=== PATIENT | female | born 1935 | race Caucasian/White ===

== ENCOUNTER 2017-06-06 12:48 | Inpatient (IN) | payer MEDICARE, BC ==
[~2017-06-06] VITALS: Ht 162.6 cm; Wt 62.4 kg
[2017-06-06] MEDS ORDERED: SODIUM CHLORIDE FLUSH 10ML SYR IVF ONE (14:30)
[2017-06-06] MEDS ORDERED: ONDANSETRON 2MG/ML, 2ML IVPush ONE (14:30)
[2017-06-06] MEDS ORDERED: DIPH,PERTUSS(ACELL),TET VAC/PF 0.5 ML IM-VACC ONE (14:59)
[2017-06-06] MEDS ORDERED: ONDANSETRON 2MG/ML, 2ML ONE (14:59)
[2017-06-06] MEDS ORDERED: LIDOCAINE 1%, 20ML ONE (14:59)
[2017-06-06] MEDS ORDERED: FENTANYL PF 100 MCG/2ML ONE (14:59)
[2017-06-06] MEDS ORDERED: LIDOCAINE 1%, 20ML INFIL ONE (15:00)
[2017-06-06] MEDS ORDERED: FENTANYL PF 100 MCG/2ML IVPush ONE (15:00)
[2017-06-06] MEDS ORDERED: DIPHTHERIA-TETANUS ADULT 0.5ML IM-VACC ONE (15:00)
[2017-06-06 15:13] LABS: BASOPHILS # (AUTO) 0.03 x10^3/uL (0-0.1); BASOPHILS % (AUTO) 0 % (0-1); EOSINOPHILS # (AUTO) 0.25 x10^3/uL (0-0.4); EOSINOPHILS % (AUTO) 2 % (1-7); LYMPHOCYTES # (AUTO) 1.38 x10^3/uL (1-3.4); LYMPHOCYTES % (AUTO) 12 % (22-44); MD NO; MEAN CORPUSCULAR HEMOGLOBIN 29.5 pg (27.0-34.8); MEAN CORPUSCULAR HGB CONC 33.6 g/dL (32.4-35.8); MEAN CORPUSCULAR VOLUME 87.7 fL (80-100); MEAN PLATELET VOLUME 8.9 fL (7.4-10.4); MONOCYTES # (AUTO) 0.46 x10^3/uL (0.2-0.8); MONOCYTES % (AUTO) 4 % (2-9); NEUTROPHILS # (AUTO) 9.22 x10^3/uL (1.8-6.8); NEUTROPHILS % (AUTO) 81 % (42-75); PLATELET COUNT 286 x10^3/uL (130-400); RED BLOOD COUNT 5.41 x10^6/uL (3.82-5.3); RED CELL DISTRIBUTION WIDTH 13.9 % (9.6-15.2)
[2017-06-06 15:17] LABS: ALBUMIN 4.2 g/dL (3.4-5.0); ANION GAP 8 mmol/L (5-15); CALCIUM 9.5 mg/dL (8.5-10.1); CHLORIDE 111 mmol/L (98-107); CREATININE 0.92 mg/dL (0.55-1.02)
[2017-06-06 15:26] LABS: INTERNATIONAL NORMALIZED RATIO 1.01 (0.93-1.1); PROTHROMBIN TIME 10.4 Seconds (9.6-11.5)
[2017-06-06] MEDS ORDERED: POTASSIUM CHLORIDE 20 MEQ TAB.ER.PRT PO ONE (15:30)
[2017-06-06 15:34] VITALS: BP 136/52
[2017-06-06] MEDS ORDERED: ATEN25TA PO (15:42)
[2017-06-06] MEDS ORDERED: LISI2.5T PO (15:42)
[2017-06-06] MEDS ORDERED: FENO145T32 PO (15:43)
[2017-06-06] MEDS ORDERED: LEVO25TA4 PO (15:43)
[2017-06-06] MEDS ORDERED: OXYB5TAB7 PO (15:43)
[2017-06-06] MEDS ORDERED: OMEG1CAP23 PO (15:44)
[2017-06-06] MEDS ORDERED: ASPI300S PR (15:45)
[2017-06-06 15:56] LABS: MICROSCOPIC AUTO
[2017-06-06 16:12] LABS: CULTURE INDICATED? NO
[2017-06-06] MEDS ORDERED: ONDANSETRON 2MG/ML, 2ML IVPush PRN (16:30)
[2017-06-06] MEDS ORDERED: LABETALOL 5MG/ML, 20ML IVPush PRN (16:30)
[2017-06-06] MEDS ORDERED: POLYETHYLENE GLYCOL 17 GM PACKET PO PRN (16:30)
[2017-06-06] MEDS ORDERED: POTASSIUM CHLORIDE 20 MEQ TAB.ER.PRT ONE (16:33)
[2017-06-06] MEDS: ACETAMINOPHEN 325 MG TABLET PO PRN (19:41)
[2017-06-06] MEDS ORDERED: SODIUM CHLORIDE FLUSH 10ML SYR IVF SCH (21:00)
[2017-06-07 04:46] LABS: ANION GAP 7 mmol/L (5-15); CALCIUM 8.8 mg/dL (8.5-10.1); CHLORIDE 113 mmol/L (98-107)
[2017-06-07 04:49] LABS: BASOPHILS # (AUTO) 0.01 x10^3/uL (0-0.1); BASOPHILS % (AUTO) 0 % (0-1); EOSINOPHILS % (AUTO) 5 % (1-7); LYMPHOCYTES # (AUTO) 1.61 x10^3/uL (1-3.4); LYMPHOCYTES % (AUTO) 19 % (22-44); MD NO; MEAN CORPUSCULAR HEMOGLOBIN 29.8 pg (27.0-34.8); MEAN CORPUSCULAR VOLUME 87.6 fL (80-100); MEAN PLATELET VOLUME 8.9 fL (7.4-10.4); MONOCYTES # (AUTO) 0.63 x10^3/uL (0.2-0.8); MONOCYTES % (AUTO) 7 % (2-9); NEUTROPHILS # (AUTO) 5.99 x10^3/uL (1.8-6.8); NEUTROPHILS % (AUTO) 69 % (42-75); PLATELET COUNT 245 x10^3/uL (130-400); RED BLOOD COUNT 4.46 x10^6/uL (3.82-5.3); RED CELL DISTRIBUTION WIDTH 13.9 % (9.6-15.2)
[2017-06-07 04:50] LABS: ALANINE AMINOTRANSFERASE 19 U/L (12-78); ALKALINE PHOSPHATASE 58 U/L (45-117); BILIRUBIN,TOTAL 0.4 mg/dL (0.2-1.0); CREATININE 0.98 mg/dL (0.55-1.02); TOTAL PROTEIN 5.5 g/dL (6.4-8.2)
[2017-06-07] MEDS ORDERED: LEVOTHYROXINE 25 MCG TABLET PO SCH (06:00)
[2017-06-07] MEDS ORDERED: LISINOPRIL 5 MG TABLET PO SCH (09:00)
[2017-06-07] MEDS ORDERED: SENNA/DOCUSATE TABLET PO SCH (09:00)
[2017-06-07] MEDS ORDERED: OXYBUTYNIN CHLORIDE 5 MG TABLET PO SCH (09:00)
[2017-06-07] MEDS ORDERED: FENOFIBRATE 145 MG TABLET PO SCH (09:00)
[2017-06-07] MEDS ORDERED: ATENOLOL 25 MG TABLET PO SCH (09:00)
[2017-06-07] MEDS ORDERED: OMNIPAQUE 350 MG/ML, 100ML BOTTLE ONE (09:10)
[2017-06-07] MEDS: ACETAMINOPHEN 325 MG TABLET PO PRN (10:14)
[2017-06-07] MEDS ORDERED: GADOBUTROL 7.5 MMOL/7.5 ML PFS ONE (10:25)
== END 2017-06-07 17:33 | disposition home or self-care (01) | DRG 580 ==
LOC: ED 14:56 → EDIP 16:09 → CCU 17:14
PROVIDERS: ADMIT Internal Medicine; ATTEND Internal Medicine
PROC: 0JQ10ZZ Repair Face Subcutaneous Tissue and Fascia, Open Approach (ICD-10-PCS; principal; 2017-06-06)
DX: S01.81XA Laceration without foreign body of other part of head, initial encounter (principal); S52.571A Other intraarticular fracture of lower end of right radius, initial encounter for closed fracture; D32.9 Benign neoplasm of meninges, unspecified; D72.829 Elevated white blood cell count, unspecified; E03.9 Hypothyroidism, unspecified; E78.5 Hyperlipidemia, unspecified; W01.0XXA Fall on same level from slipping, tripping and stumbling without subsequent striking against object, initial encounter; Z96.651 Presence of right artificial knee joint; E87.6 Hypokalemia; G93.9 Disorder of brain, unspecified; I10 Essential (primary) hypertension; R32 Unspecified urinary incontinence; Z82.49 Family history of ischemic heart disease and other diseases of the circulatory system; Z90.710 Acquired absence of both cervix and uterus; Z85.820 Personal history of malignant melanoma of skin; Z82.3 Family history of stroke; Z88.6 Allergy status to analgesic agent; Z88.0 Allergy status to penicillin; Y93.89 Activity, other specified; Y92.89 Other specified places as the place of occurrence of the external cause; Y99.8 Other external cause status; Z23 Encounter for immunization
CPT/HCPCS: 12013; 29125; 36415; 70450; 70553; 71045; 71260; 74177; 80048; 80053; 81001; 82040; 85025; 85610; 85730; 87081; 90714; 93005; 96372; 96374; 96375; A9585; J2405; J3010; Q9967

== ENCOUNTER → 2017-12-28 | Outpatient (CLI) | payer MEDICARE, BC ==
[~2017-12-28] MED LIST: ASPI300S PR; ATEN25TA PO; FENO145T32 PO; LEVO25TA4 PO; LISI2.5T PO; OMEG1CAP23 PO; OXYB5TAB7 PO
== END | disposition home or self-care (01) ==
LOC: CFH 11:18
PROVIDERS: ATTEND Psychiatry & Neurology Neurology
DX: G40.909 Epilepsy, unspecified, not intractable, without status epilepticus (principal)
CPT/HCPCS: 36415; 80177

== ENCOUNTER → 2018-01-31 | Outpatient (CLI) | payer MEDICARE, BC | END | disposition home or self-care (01) | LOC: CFH 11:28 | PROVIDERS: ATTEND Psychiatry & Neurology Neurology | DX: G40.409 Other generalized epilepsy and epileptic syndromes, not intractable, without status epilepticus (principal) | CPT/HCPCS: 36415; 80177 ==

== ENCOUNTER → 2018-02-02 | Outpatient (CLI) | payer MEDICARE, BC ==
[~2018-02-02] MED LIST changes: +GADOBUTROL 7.5 MMOL/7.5 ML PFS ONE
== END | disposition home or self-care (01) ==
LOC: CFH 12:27
PROVIDERS: ATTEND Neurological Surgery
DX: D32.0 Benign neoplasm of cerebral meninges (principal); G93.6 Cerebral edema; C43.9 Malignant melanoma of skin, unspecified
CPT/HCPCS: 70553; 82565; A9585

== ENCOUNTER → 2018-06-13 | Outpatient (CLI) | payer MEDICARE, BC ==
[~2018-06-13] MED LIST changes: -GADOBUTROL 7.5 MMOL/7.5 ML PFS ONE
== END | disposition home or self-care (01) ==
LOC: CFH 11:04
PROVIDERS: ATTEND Psychiatry & Neurology Neurology
DX: G40.409 Other generalized epilepsy and epileptic syndromes, not intractable, without status epilepticus (principal)
CPT/HCPCS: 36415; 80177

== ENCOUNTER → 2019-05-30 | Outpatient (CLI) | payer MEDICARE, BC ==
[~2019-05-30] MED LIST changes: +OXYB5TAB10 PO; -OXYB5TAB7 PO
[2019-05-30 13:10] LABS: BASOPHILS # (AUTO) 0.02 x10^3/uL (0-0.1); BASOPHILS % (AUTO) 0 % (0-1); EOSINOPHILS # (AUTO) 0.05 x10^3/uL (0-0.4); EOSINOPHILS % (AUTO) 1 % (1-7); LYMPHOCYTES % (AUTO) 19 % (22-44); MD NO; MEAN CORPUSCULAR HEMOGLOBIN 30.6 pg (27.0-34.8); MEAN CORPUSCULAR HGB CONC 33.4 g/dL (32.4-35.8); MEAN CORPUSCULAR VOLUME 91.7 fL (80-100); MEAN PLATELET VOLUME 8.8 fL (7.4-10.4); MONOCYTES # (AUTO) 0.41 x10^3/uL (0.2-0.8); MONOCYTES % (AUTO) 6 % (2-9); NEUTROPHILS # (AUTO) 5.33 x10^3/uL (1.8-6.8); NEUTROPHILS % (AUTO) 74 % (42-75); PLATELET COUNT 328 x10^3/uL (130-400); RED BLOOD COUNT 4.99 x10^6/uL (3.82-5.3); RED CELL DISTRIBUTION WIDTH 13.2 % (9.6-15.2)
[2019-05-30 13:47] LABS: ALANINE AMINOTRANSFERASE 25 U/L (12-78); ALBUMIN 3.9 g/dL (3.4-5.0); ANION GAP 8 mmol/L (5-15); CALCIUM 9.4 mg/dL (8.5-10.1); CHLORIDE 111 mmol/L (98-107); CREATININE 1.11 mg/dL (0.55-1.02); T4 (THYROXINE) 14.7 mcg/dL (4.8-13.9)
[2019-05-30 14:13] LABS: ALKALINE PHOSPHATASE 59 U/L (45-117); BILIRUBIN,TOTAL 0.5 mg/dL (0.2-1.0); TOTAL PROTEIN 6.6 g/dL (6.4-8.2)
== END | disposition home or self-care (01) ==
LOC: CFH 10:00
PROVIDERS: ATTEND Specialist
DX: G40.901 Epilepsy, unspecified, not intractable, with status epilepticus (principal); R41.3 Other amnesia; Z79.899 Other long term (current) drug therapy
CPT/HCPCS: 36415; 80053; 82607; 84436; 85025

== ENCOUNTER → 2019-07-17 | Outpatient (CLI) | payer MEDICARE, BC ==
[2019-07-17 13:30] LABS: BASOPHILS # (AUTO) 0.02 x10^3/uL (0-0.1); BASOPHILS % (AUTO) 0 % (0-1); EOSINOPHILS # (AUTO) 0.12 x10^3/uL (0-0.4); EOSINOPHILS % (AUTO) 2 % (1-7); LYMPHOCYTES # (AUTO) 1.32 x10^3/uL (1-3.4); LYMPHOCYTES % (AUTO) 22 % (22-44); MD NO; MEAN CORPUSCULAR HGB CONC 34.2 g/dL (32.4-35.8); MEAN CORPUSCULAR VOLUME 90.7 fL (80-100); MEAN PLATELET VOLUME 8.6 fL (7.4-10.4); MONOCYTES # (AUTO) 0.38 x10^3/uL (0.2-0.8); MONOCYTES % (AUTO) 6 % (2-9); NEUTROPHILS # (AUTO) 4.05 x10^3/uL (1.8-6.8); NEUTROPHILS % (AUTO) 69 % (42-75); PLATELET COUNT 317 x10^3/uL (130-400); RED BLOOD COUNT 4.78 x10^6/uL (3.82-5.3); RED CELL DISTRIBUTION WIDTH 12.8 % (9.6-15.2)
[2019-07-17 14:52] LABS: CHLORIDE 110 mmol/L (98-107)
[2019-07-17 14:59] LABS: ALANINE AMINOTRANSFERASE 22 U/L (12-78); ALBUMIN 3.8 g/dL (3.4-5.0); ALKALINE PHOSPHATASE 58 U/L (45-117); ANION GAP 4 mmol/L (5-15); BILIRUBIN,TOTAL 0.3 mg/dL (0.2-1.0); CALCIUM 9.1 mg/dL (8.5-10.1); CREATININE 0.99 mg/dL (0.55-1.02); TOTAL PROTEIN 6.4 g/dL (6.4-8.2)
== END | disposition home or self-care (01) ==
LOC: CFH 09:46
PROVIDERS: ATTEND Specialist
DX: C71.9 Malignant neoplasm of brain, unspecified (principal); R41.3 Other amnesia; Z79.899 Other long term (current) drug therapy
CPT/HCPCS: 36415; 80053; 85025

== ENCOUNTER → 2019-11-09 | Outpatient (CLI) | payer MEDICARE, BC ==
[2019-11-09 13:04] LABS: BASOPHILS # (AUTO) 0.05 x10^3/uL (0-0.1); BASOPHILS % (AUTO) 1 % (0-1); EOSINOPHILS # (AUTO) 0.13 x10^3/uL (0-0.4); EOSINOPHILS % (AUTO) 2 % (1-7); LYMPHOCYTES # (AUTO) 1.66 x10^3/uL (1-3.4); LYMPHOCYTES % (AUTO) 22 % (22-44); MD NO; MEAN CORPUSCULAR HEMOGLOBIN 30.4 pg (27.0-34.8); MEAN CORPUSCULAR HGB CONC 33.6 g/dL (32.4-35.8); MEAN CORPUSCULAR VOLUME 90.5 fL (80-100); MEAN PLATELET VOLUME 8.3 fL (7.4-10.4); MONOCYTES % (AUTO) 6 % (2-9); NEUTROPHILS # (AUTO) 5.15 x10^3/uL (1.8-6.8); NEUTROPHILS % (AUTO) 70 % (42-75); PLATELET COUNT 330 x10^3/uL (130-400); RED BLOOD COUNT 4.93 x10^6/uL (3.82-5.3); RED CELL DISTRIBUTION WIDTH 13.4 % (9.6-15.2)
[2019-11-09 13:17] LABS: CHLORIDE 111 mmol/L (98-107)
[2019-11-09 13:27] LABS: ALANINE AMINOTRANSFERASE 26 U/L (12-78); ALBUMIN 3.9 g/dL (3.4-5.0); ALKALINE PHOSPHATASE 60 U/L (45-117); ANION GAP 3 mmol/L (5-15); BILIRUBIN,TOTAL 0.4 mg/dL (0.2-1.0); CALCIUM 9.6 mg/dL (8.5-10.1); CREATININE 0.99 mg/dL (0.55-1.02); TOTAL PROTEIN 6.5 g/dL (6.4-8.2)
== END | disposition home or self-care (01) ==
LOC: CFH 10:47
PROVIDERS: ATTEND Specialist
DX: R41.3 Other amnesia (principal); Z79.899 Other long term (current) drug therapy
CPT/HCPCS: 36415; 80053; 85025

== ENCOUNTER 2019-12-27 08:38 | Inpatient (IN) | payer MEDICARE, BC ==
[~2019-12-27] VITALS: Ht 170.2 cm; Wt 60.2 kg
--- NOTE | 2019-12-27 08:56 | NUR ---
[facility] FROM HOME. PT W/ HX OF MENINGIOMA, BRAIN CA. HAS TREMMORS THAT FAMILY CAN USUALLY STOP BY APPLYING GENTAL PRESSURE TO THE LIMB THAT IS TREMMORING. THIS MORNING SHE BEGAN HAVE FULL BODY TREMMORS WHICH DIDNOT RESPOND TO THE PRESSURE. PT STATESTHAT THE TREMMORS HAVE NEVER BEEN FULL BODY BEFORE. USUALLY JUST ONE LIMB. EMS RPTS THAT SHE WAS A&O ON THEIR ARRIVAL WITH FULL BODY TREMMORS. PIV WAS EST AND THEY ADMIN 2MG OF VERSED WITH SOME EFFECT. THE FULL BODY TREMMORS RESSOLVED BUT RIGHT ARM TREMMOR CONTINUED. SINCE PTS ARRIVAL THE TREMMOR IN THE RIGHT ARM HAS INCRESED IN INTENSITY AND NOW HAS SOME RIGHT LEG TREMMOR NOTED. PT IS UNABLE TO RAISE RIGHT LEG OFF OF THE BED. RIGHT HAD GRASP IS VERY WEAK. JANIE BEAULIEU AT BEDSIDE, PT ASSESSMENT REVIEWED AND QUESTIONS ANSWERED. PROVIDER TO [facility]
[2019-12-27] MEDS ORDERED: LORazepam 2 MG/ML, 1ML ONE (09:12)
--- NOTE | 2019-12-27 09:25 | NUR ---
REPORT RECEIVED FROM KAVYA WATTS. LAW LEONCIO AT BEDSIDE FOR EVAL. PT MEDICATED W/ 1MG ATIVAN PER VERBAL ORDER. TREMORS IMPROVED AFTER MEDS BUT STILL PRESENT ON RT SIDE. PT RESTING ON GURNEY W/ CALL LIGHT IN REACH, SIDE RAILS UPX2. FAMILY AT BEDSIDE. CONNECTED TO ALL MONITORING, JEANNA NULL.
--- NOTE | 2019-12-27 09:27 | NUR ---
MED LAURA FROM PHARMACY.
[2019-12-27] MEDS ORDERED: SODIUM CHLORIDE FLUSH 10ML SYR IVF ONE (09:30)
[2019-12-27] MEDS ORDERED: LEVETIRACETAM 1,000 MG in SODIUM CHLORIDE 0.9% 100 ML IV ONE ×2 (09:30→10:30)
[2019-12-27 09:35] LABS: BASOPHILS # (AUTO) 0.02 x10^3/uL (0-0.1); BASOPHILS % (AUTO) 0 % (0-1); EOSINOPHILS # (AUTO) 0.05 x10^3/uL (0-0.4); EOSINOPHILS % (AUTO) 1 % (1-7); LYMPHOCYTES # (AUTO) 1.14 x10^3/uL (1-3.4); LYMPHOCYTES % (AUTO) 18 % (22-44); MD NO; MEAN CORPUSCULAR HEMOGLOBIN 29.9 pg (27.0-34.8); MEAN CORPUSCULAR HGB CONC 32.7 g/dL (32.4-35.8); MEAN CORPUSCULAR VOLUME 91.3 fL (80-100); MEAN PLATELET VOLUME 7.8 fL (7.4-10.4); MONOCYTES # (AUTO) 0.38 x10^3/uL (0.2-0.8); MONOCYTES % (AUTO) 6 % (2-9); NEUTROPHILS # (AUTO) 4.87 x10^3/uL (1.8-6.8); NEUTROPHILS % (AUTO) 76 % (42-75); PLATELET COUNT 297 x10^3/uL (130-400); RED BLOOD COUNT 4.68 x10^6/uL (3.82-5.3); RED CELL DISTRIBUTION WIDTH 13.2 % (9.6-15.2)
[2019-12-27 09:47] LABS: ALBUMIN 3.6 g/dL (3.4-5.0); ANION GAP 8 mmol/L (5-15); CALCIUM 9.4 mg/dL (8.5-10.1); CHLORIDE 114 mmol/L (98-107)
[2019-12-27 09:51] LABS: ALANINE AMINOTRANSFERASE 22 U/L (12-78); ALKALINE PHOSPHATASE 48 U/L (45-117); BILIRUBIN,TOTAL 0.5 mg/dL (0.2-1.0); CREATININE 1.02 mg/dL (0.55-1.02)
[2019-12-27] MEDS ORDERED: LEVETIRACETAM 500 MG TABLET PO ONE (10:00)
[2019-12-27] MEDS ORDERED: LORazepam 1MG TABLET PO ONE (10:00)
--- NOTE | 2019-12-27 10:15 | NUR ---
PER , PT OKAY TO TAKE HOME MEDS.
[2019-12-27] MEDS ORDERED: LEVE500T8 PO (10:16)
[2019-12-27] MEDS ORDERED: DONE10TA7 PO (10:20)
--- NOTE | 2019-12-27 10:22 | NUR ---
MED LAURA FROM PHARMACY.
--- NOTE | 2019-12-27 10:27 | NUR ---
PT TO MRI.
--- NOTE | 2019-12-27 10:41 | NUR ---
PHARMACY SENT BACK EMPTY TUBE W/O MEDS. PHARMACY CALLED TO REQUEST 2ND GRAM OF KEPPRA.
[2019-12-27] MEDS ORDERED: GADOTERATE 7.5 MMOL/15 ML VIAL ONE (10:49)
--- NOTE | 2019-12-27 11:17 | NUR ---
ADMITTING PROVIDER IS AT BEDSIDE FOR EVAL.
--- NOTE | 2019-12-27 11:18 | NUR ---
REPORT TO JIMMY WATTS PT IS READY FOR TRANSPORT AT THIS TIME. AURY INFUSING APPROPRIATELY.
[2019-12-27 11:56] VITALS: BP 156/70
[2019-12-27] MEDS ORDERED: ONDANSETRON 2MG/ML, 2ML IV PRN (13:00)
[2019-12-27] MEDS ORDERED: hydrALAzine 20 MG/ML, 1ML IV PRN (13:00)
[2019-12-27] MEDS ORDERED: DOCUSATE 100 MG CAPSULE PO PRN (13:00)
[2019-12-27] MEDS ORDERED: ACETAMINOPHEN 650 MG/20.3 ML UDC PO PRN (13:00)
[2019-12-27] MEDS ORDERED: PHARMACY MAY ADJ FOR RENAL FX MC PRN (16:00)
[2019-12-27 19:21] VITALS: BP 176/76
[2019-12-27] MEDS ORDERED: LACOSAMIDE 50 MG TAB ONE (20:43)
[2019-12-27] MEDS: LEVETIRACETAM 500 MG TABLET PO SCH (20:46)
[2019-12-27] MEDS: LISINOPRIL 5 MG TABLET PO SCH (20:47)
[2019-12-27] MEDS: LACOSAMIDE 50 MG TABLET PO SCH (20:47)
[2019-12-27] MEDS ORDERED: LEVETIRACETAM 500 MG TABLET PO SCH (21:00)
[2019-12-27] MEDS ORDERED: DONEPEZIL 10 MG TABLET PO SCH (21:00)
[2019-12-27] MEDS ORDERED: OXYBUTYNIN CHLORIDE 5 MG TABLET PO SCH (21:00)
[2019-12-28 02:01] VITALS: BP 174/80
[2019-12-28] MEDS ORDERED: LEVOTHYROXINE 25 MCG TABLET PO SCH (06:00)
[2019-12-28 07:33] VITALS: BP 169/77
[2019-12-28] MEDS: LEVETIRACETAM 500 MG TABLET PO SCH (08:22)
[2019-12-28] MEDS: LISINOPRIL 5 MG TABLET PO SCH (08:22)
[2019-12-28] MEDS ORDERED: OMEGA-3/FISH OIL CAPSULE PO SCH (09:00)
[2019-12-28] MEDS ORDERED: ATENOLOL 25 MG TABLET PO SCH (09:00)
[2019-12-28] MEDS ORDERED: FENOFIBRATE 145 MG TABLET PO SCH (09:00)
[2019-12-28] MEDS: LACOSAMIDE 50 MG TABLET PO SCH (10:02)
[2019-12-28 12:24] VITALS: BP 178/95
[2019-12-28] MEDS ORDERED: METHOCARBAMOL 500 MG TABLET PO SCH (16:00)
[2019-12-28] MEDS ORDERED: LISI2.5T PO (16:29)
[2019-12-28] MEDS ORDERED: METH500T7 PO (16:29)
[2019-12-28] MEDS ORDERED: LACO50TA PO (16:34)
[2019-12-28] MEDS ORDERED: LISINOPRIL 5 MG TABLET PO SCH (21:00)
== END 2019-12-28 18:09 | disposition home health service (06) | DRG 101 ==
LOC: ED 09:34 → EDIP 10:11 → 4WST 11:31
PROVIDERS: ADMIT Family Medicine; ATTEND Family Medicine
DX: G40.901 Epilepsy, unspecified, not intractable, with status epilepticus (principal); G81.91 Hemiplegia, unspecified affecting right dominant side; Z66 Do not resuscitate; D32.0 Benign neoplasm of cerebral meninges; I10 Essential (primary) hypertension; E78.5 Hyperlipidemia, unspecified; E03.9 Hypothyroidism, unspecified; Z82.3 Family history of stroke; Z82.49 Family history of ischemic heart disease and other diseases of the circulatory system; Z85.820 Personal history of malignant melanoma of skin; Z86.011 Personal history of benign neoplasm of the brain; Z90.710 Acquired absence of both cervix and uterus; Z88.6 Allergy status to analgesic agent; Z88.0 Allergy status to penicillin
CPT/HCPCS: 36415; 70553; 80053; 80177; 83735; 84443; 85025; 93005; 95816; G0378; J1953

== ENCOUNTER 2020-08-28 14:01 | Emergency (ER) | payer MEDICARE, BC ==
[~2020-08-28] VITALS: Ht 162.6 cm; Wt 48.3 kg
[~2020-08-28 14:01] MED LIST changes: +DONE10TA7 PO; +LACO50TA PO; +LEVE500T8 PO; +METH-639 PO
--- NOTE | 2020-08-28 14:35 | NUR ---
CONTACT WITH PT. 85 YR OLD FEMALE HERE WITH C/O "SHE HAS A BRAIN TUMOR AND IS ALMOST COMPLETELY PARALYSED ON THE LEFT SIDE. SHE FELL (NOT SURE WHY, IF SHE TRIPPED OVER SOMETHING OR WHAT) AND FELL. SHE HAS A BRUISE ON HER BUTT. Addendum: 08/28/20 at 1451 by [facility] ON RIGHT SIDE.
--- NOTE | 2020-08-28 14:51 | NUR ---
TURNED PT TO LOOK AT BACK. NO BRUISING/REDNESS NOTED. TURNED HER TO BACK AND STARTED TO SIT HER UP. C/O PAIN, LOWER BACK WHEN RAISING THE HEAD OF GURNEY. PLACED IN A POSITION OF COMFORT. SERENA PAWS WARMER PROVIDER. PT AND PTS UPDATED ON WAITING FOR MD RICK. UNDERSTANDING VERBALIZED.
--- NOTE | 2020-08-28 15:28 | NUR ---
PT MAX ASSIST TO [facility] AND BACK TO [facility]. DR WOOD IN TO [place] PT. PT AND PTS UPDATED ON POC.
[2020-08-28 15:29] VITALS: BP 146/61
--- NOTE | 2020-08-28 15:55 | NUR ---
PT TO CT VIA [facility]
--- NOTE | 2020-08-28 16:12 | NUR ---
PT RETURN TO ROOM FROM CT. WAITING FOR RESULTS. PTS AT BEDSIDE.
--- NOTE | 2020-08-28 16:46 | NUR ---
PT ASSIST TO [facility]. PT WITH LOOSE STOOL. MAX ASSIST WITH [facility]. PT ASSIST BACK TO [facility]. PT TEARFUL UPON RETURN TO BED. COMFORT PROVIDED. CT RESULTED, CHART UP FOR MD REVIEW. PTS AT BEDSIDE.
[2020-08-28] MEDS ORDERED: IBUPROFEN 600 MG TABLET ONE (17:02)
[2020-08-28] MEDS ORDERED: IBUPROFEN 600 MG TABLET PO ONE (17:30)
--- NOTE | 2020-08-28 17:30 | NUR ---
NO IV DC. ASSIST PT WITH PUTTING ON A BRIEF AND DRESSING PT. ASSIST TRANSFER TO W/C. REVIEWED DC INSTRUCTIONS WITH PT'S . UNDERSTANDING VERBALIZED. PT HAS FAMILY THAT COMES ON THE WEEKENDS AND. HAS SENIOR SERVICES THAT COMES TO THE HOUSE A COUPLE OF TIMES A WEEK. PT LEFT VIA W/C.
== END 2020-08-28 17:33 | disposition home or self-care (01) ==
LOC: ED 17:00
DX: S32.10XA Unspecified fracture of sacrum, initial encounter for closed fracture (principal); S32.049A Unspecified fracture of fourth lumbar vertebra, initial encounter for closed fracture; I10 Essential (primary) hypertension; Z88.0 Allergy status to penicillin; Z79.82 Long term (current) use of aspirin; W18.30XA Fall on same level, unspecified, initial encounter; Y93.89 Activity, other specified; Y92.009 Unspecified place in unspecified non-institutional (private) residence as the place of occurrence of the external cause; Y99.8 Other external cause status
CPT/HCPCS: 72131; 99285